=== PATIENT | female | born 1990 | race African-American/Black ===

== ENCOUNTER 2022-08-18 18:53 | Emergency (ER) | payer OTHER, MEDICAID ==
[~2022-08-18] VITALS: Ht 165.1 cm; Wt 73.0 kg
[2022-08-18 18:55] VITALS: BP 0/0
[2022-08-18 19:51] LABS: BASOPHILS % 1.1 % (0.0-2.0); HEMOGLOBIN. 12.7 g/dL (12.0-16.0); LYMPHOCYTES % 47.3 % (20.0-50.0); MEAN CORPUSCULAR HEMOGLOBIN 27.9 pg (28.0-32.0); MEAN CORPUSCULAR VOLUME 85.9 fL (81.0-99.0); MEAN PLATELET VOLUME 6.4 fl (7.4-10.4); MONOCYTES % 9.7 % (2.0-8.0); NEUTROPHILS % 40.9 % (40.0-76.0); PLATELET 295 x1000/uL (130-400); RED BLOOD CELL COUNT 4.54 mill/uL (4.2-5.4); RED CELL DISTRIBUTION WIDTH 13.8 % (11.6-14.6)
[2022-08-18 20:01] LABS: CHLORIDE 105 mEq/L (98-107)
[2022-08-18 20:09] LABS: HCG SCREEN NEGATIVE
[2022-08-18 20:14] LABS: ETHANOL BLOOD 307 mg/dL
== END 2022-08-19 | disposition left against medical advice (07) ==
LOC: ER 18:53
DX: F10.129 Alcohol abuse with intoxication, unspecified (principal); Y90.8 Blood alcohol level of 240 mg/100 ml or more; R03.0 Elevated blood-pressure reading, without diagnosis of hypertension
CPT/HCPCS: 36415; 80053; 80320; 84703; 85025; 99283; G0480

== ENCOUNTER 2022-08-19 11:14 | Emergency (ER) | payer MEDICAID ==
[~2022-08-19] VITALS: Ht 170.2 cm; Wt 75.0 kg
[2022-08-19 12:59] LABS: BASOPHILS % 1.2 % (0.0-2.0); EOSINOPHILS % 0.4 % (0.0-5.0); HEMATOCRIT. 43.1 % (36.0-48.0); HEMOGLOBIN. 13.6 g/dL (12.0-16.0); LYMPHOCYTES % 56.9 % (20.0-50.0); MEAN CORPUSCULAR HEMOGLOBIN 27.7 pg (28.0-32.0); MEAN CORPUSCULAR VOLUME 87.8 fL (81.0-99.0); MEAN PLATELET VOLUME 6.7 fl (7.4-10.4); NEUTROPHILS % 34.5 % (40.0-76.0); PLATELET 303 x1000/uL (130-400); RED BLOOD CELL COUNT 4.91 mill/uL (4.2-5.4); RED CELL DISTRIBUTION WIDTH 14.4 % (11.6-14.6)
[2022-08-19 13:15] LABS: HCG SCREEN NEGATIVE
[2022-08-19 13:44] LABS: ETHANOL BLOOD 541 mg/dL
[2022-08-19 15:33] LABS: CHLORIDE 113 mEq/L (98-107)
[2022-08-19 16:53] VITALS: BP 121/81
== END 2022-08-20 02:56 | disposition home or self-care (01) ==
LOC: ER 11:14
DX: F10.129 Alcohol abuse with intoxication, unspecified (principal); Y90.8 Blood alcohol level of 240 mg/100 ml or more
CPT/HCPCS: 36415; 70450; 72125; 80053; 80307; 80320; 80329; 84703; 85025; 99284; Z7610; G0480